=== PATIENT | male | born 1985 | race Caucasian/White ===

== ENCOUNTER 2019-07-29 03:17 | Emergency (ER) | payer SELFPAY ==
--- NOTE | 2019-07-29 03:25 | NUR ---
PATIENT LEFT WITHOUT BEING SEEN BY DR. JIM. PT CAME INTO TRIAGE AND DECIDED NOT TO BE SEEN, LEFT ER. NO FURTHER CARE PROVIDED FOR PATIENT.
== END 2019-07-29 03:25 | disposition left against medical advice (07) ==
LOC: MED 03:17
DX: M79.671 Pain in right foot (principal); M79.672 Pain in left foot; Z53.21 Procedure and treatment not carried out due to patient leaving prior to being seen by health care provider

== ENCOUNTER 2019-07-29 14:48 | Emergency (ER) | payer SELFPAY ==
[~2019-07-29] VITALS: Ht 177.8 cm; Wt 70.3 kg
[2019-07-29 14:48] VITALS: BP 116/66
--- NOTE | 2019-07-29 14:48 | NUR ---
PT BIBA TO ER BED 01
--- NOTE | 2019-07-29 14:50 | NUR ---
Elvie cee in [facility] - 07/29/19 at 1451 by DIONI PT BIBA TO ER BED 01
--- NOTE | 2019-07-29 15:10 | NUR ---
PATIENT YESSENIA FROM [place], PT REQUESTED BYSTANDER TO CALL, C/O CANDACE PLANTAR FOOT PAIN WITH OPENED BLISTERS X2 DAYS, WAS SEEN HERE YESTERDAY. PER EMS, PT MUCUOUS MEMBRANES DRY AND DEHYDRATED AND GLUCOSE 60, WAS GIVEN ORAL GLUCOSE AND STARTED 1L NS BOLUS. GLUCOSE 79 AT THIS TIME, TEMP 100.2, HR 109, HX METH ABUSE . PT STATES HE IS LIVING IN HIS CAR CURRENTLY. PATIENT STATES PAIN OF 8/10 AT THIS TIME; VSS; PATIENT POSITIONED FOR COMFORT; HOB ELEVATED; BEDRAILS UP X2; BED DOWN. ER MD MADE AWARE OF PT STATUS.
--- NOTE | 2019-07-29 15:26 | NUR ---
Patient being evaluated by physician at bedside.
[2019-07-29] MEDS ORDERED: NACL 0.9% 1,000 ML IV ONE (15:45)
[2019-07-29] MEDS ORDERED: KETOROLAC 15 MG/ML VIAL IVP ONE (15:45)
[2019-07-29] MEDS ORDERED: ACETAMINOPHEN EXTRA STRENGTH 500 MG TAB PO ONE (15:45)
[2019-07-29] MEDS ORDERED: BACITRACIN OINT 500 UNITS/GM PKT TP ONE (15:45)
--- NOTE | 2019-07-29 16:15 | NUR ---
CLEANED WOUND, PLACED BACITRACIN, AND PLACED NON ADHERENT DRESSING ON FOOT OF PT
--- NOTE | 2019-07-29 17:00 | NUR ---
ASLEEP IN BED, NO S/S OF DISTRESS, DENIES PAIN, VSS.
--- NOTE | 2019-07-29 17:11 | NUR ---
Elvie ramanjohn in [facility] - 07/29/19 at 1712 by MEDJJ PATIENT HAS URINARY INCONTINENCE AT THIS TIME, CHANGED FOR COMFORT, REPOSITIONED IN BED
[2019-07-29 17:39] VITALS: BP 96/45
--- NOTE | 2019-07-29 17:39 | NUR ---
Patient discharged with v/s stable. Written and verbal after care instructions given and explained. Patient verbalized understanding. HOMELESS PATIENT WAIVER FORM SIGNED, WILL MAKE HIS OWN ARRANGEMENTS FOR LIVING, FOOD AND BUS PASS OFFERED, All questions addressed prior to discharge. Advised to follow up with [facility].
== END 2019-07-29 17:39 | disposition home or self-care (01) ==
LOC: MED 14:48
DX: S90.822A Blister (nonthermal), left foot, initial encounter (principal); S90.821A Blister (nonthermal), right foot, initial encounter; S90.422A Blister (nonthermal), left great toe, initial encounter; S90.425A Blister (nonthermal), left lesser toe(s), initial encounter; S90.421A Blister (nonthermal), right great toe, initial encounter; S90.424A Blister (nonthermal), right lesser toe(s), initial encounter; F15.10 Other stimulant abuse, uncomplicated; F17.210 Nicotine dependence, cigarettes, uncomplicated; Z71.6 Tobacco abuse counseling; X58.XXXA Exposure to other specified factors, initial encounter; Y92.89 Other specified places as the place of occurrence of the external cause; Y93.89 Activity, other specified; Y99.8 Other external cause status
CPT/HCPCS: 16020; 96374; 99284; J1885; J7030; 99283